=== PATIENT | female | born 1935 | race Caucasian/White ===

== ENCOUNTER 2019-08-09 13:25 | Emergency (ER) | payer OTHER, BC ==
[~2019-08-09] VITALS: Ht 167.6 cm; Wt 67.7 kg
[2019-08-09 14:28] VITALS: BP 191/95; Ht 167.6 cm; Wt 67.7 kg
== END 2019-08-09 15:53 | disposition left against medical advice (07) ==
LOC: ED 13:25
DX: Z53.21 Procedure and treatment not carried out due to patient leaving prior to being seen by health care provider (principal)